=== PATIENT | male | born 1990 | race Caucasian/White ===

== ENCOUNTER 2024-02-24 07:34 | Outpatient (CLI) | payer BC | END 2024-02-24 07:35 | disposition home or self-care (01) | LOC: CT 07:34 | PROVIDERS: ATTEND Family Medicine | DX: R51.9 Headache, unspecified (principal); R55 Syncope and collapse; J34.1 Cyst and mucocele of nose and nasal sinus | CPT/HCPCS: 70450 ==

== ENCOUNTER 2024-05-20 09:13 | Outpatient (CLI) | payer BC | END 2024-05-20 09:14 | disposition home or self-care (01) | LOC: SCSRAD 09:13 | PROVIDERS: ATTEND Family Medicine | DX: M47.26 Other spondylosis with radiculopathy, lumbar region (principal); M41.9 Scoliosis, unspecified | CPT/HCPCS: 72110 ==